=== PATIENT | female | born 1990 | race Caucasian/White ===

== ENCOUNTER 2019-09-08 09:18 | Emergency (ER) | payer OTHER, SELFPAY ==
[2019-09-08 09:47] VITALS: BP 145/88; PULSE 77; RESP 20; TEMP 36.3; O2SAT 98
--- NOTE | 2019-09-08 09:57 | ED.ABDPAIN ---
HPI - Abdominal Pain General Chief Complaint: Abdominal Pain Stated Complaint: bleeding after procedure History of Present Illness HPI narrative: A 29-year-old 2 para is 0 had a LEEP procedure 2 days ago. Since then she has had progressively worsening lower abdominal pain associated with chills, hot flashes, lightheadedness and nausea. The pain radiates into her lower back. It's made worse with the sneezing, coughing and walking and decreases with laying supine and applying a heating pad on her abdomen. This AM she passed 2 small clots. No bleeding since then. She has been taking naproxen 440 mg every 8-12 hours last dose was approximately for her the 3 hours ago. This has not sustantially relieved her pain. She has a hx of irregular menses. LMP 08/19/19 In addition, the angles of both jaw started hurting yesterday. This morning she noticed bruising in this area. Related Data Home Medications Medication Instructions Recorded Confirmed venlafaxine 37.5 mg PO DAILY 09/08/19 09/08/19 Allergies Allergy/AdvReac Type Severity Reaction Status Date / Time No Known Allergies Allergy Verified 09/08/19 09:53 Review of Systems Gastrointestinal: Gastrointestinal: Denies diarrhea and Denies vomiting Genitourinary: Genitourinary: Denies dysuria Musculoskeletal: Musculoskeletal: Reports no additional musculoskeletal complaints [facility] Past Medical History Medical History (Updated 09/09/19 @ 06:47 by Michael Reyes MD) Ovarian cyst Family History Family History (Updated 09/09/19 @ 06:38 by Michael Reyes MD) Father Hypertension Hyperlipidemia Mother Hyperlipidemia Hypertension Exam Const: General: no acute distress Nutritional Appearance: obese HENMT: Head: normal to inspection Mouth: Yes Normal oral and palatal mucosa present and Yes moist mucous membranes Throat: posterior oropharynx normal Other: Fully opens and closes mouth without pain. Neck: Other: Faint bruising and tenderness over the anterior edge of both [id number] muscles, just below the angles of the mandible. No induration. No cervical nodes. Minor pain in these regions when the head is fully rotated. GI: GI Palp: Yes Soft to palpation and Yes Tenderness to palpation present (GI) (suprapubic area. ) : General: Yes no CVA tenderness Speculum Exam - Vagina: vaginal discharge abnormal (yellow/cole thick vaginal d.c. ) and No vaginal bleeding Speculum Exam - Cervix: normal appearance of the cervix and Cervical tenderness present Bimanual exam- vagina & uterus: other (unable to palpate the uterus or adnexae secondary to obesity. ) OB/external & speculum: no herpetic lesions Other: cervix has dark cole necrotic surface. Course Course Emergency Course: I spoke with Dr. Francine Larkin at [facility] who reports anesthesia had some difficulty paralyzing. LMA was then inserted. Does not have last GC/Chlamydia. Pt will be contacted by [facility] for appt. tomorrow for recheck. Vital Signs Vital signs: Vital Signs Temperature 36.3 C L 09/08/19 09:47 Pulse Rate 77 09/08/19 09:47 Respiratory Rate 20 09/08/19 09:47 Blood Pressure 145/88 H 09/08/19 09:47 Pulse Oximetry 98 09/08/19 09:47 Temperature 36.3 C L 09/08/19 09:47 Pulse Rate 89 09/08/19 13:33 Respiratory Rate 18 09/08/19 13:33 Blood Pressure 128/72 09/08/19 13:33 Pulse Oximetry 98 09/08/19 13:33 MDM - Abdominal Pain MDM Narrative Medical decision making narrative: Lower abd. pain - complication of LEEP procedure, PID, cystitis, ectopic, UTI, appendicitis, abscess. Will tx for PID covering for anaerobes because of instrumentation. Neck pain and bruising: In view of reported difficulty with RSI the most likely explanation is an injury sustained in the process of intubation. Other possibilities include lymphangitis which doesn't explain the bruising. Lab Data Result diagrams: 09/08/19 10:16 09/08/19 10:16
[2019-09-08] MEDS: MORPHINE SULFATE 4 MG/ML INJ IV PUSH (10:07)
[2019-09-08 10:21] LABS: Basophils Absolute Auto 0.05 K/mm3 (0.00-0.10); Basophils Percent Auto 0.4 % (0.0-1.0); Eosinophils Absolute Auto 0.09 K/mm3 (0.02-0.50); Eosinophils Percent Auto 0.7 % (1.0-6.0); Hematocrit 37.3 % (35.0-49.0); Hemoglobin 12.6 g/dL (12.0-15.0); Immature Granulocyte Absolute 0.06 K/mm3 (0.00-0.00); Immature Granulocyte Percent A 0.5 % (0.0-0.0); Lymphocytes Absolute Auto 3.47 K/mm3 (1.10-4.50); Mean Corpuscular HGB Conc 33.8 g/dL (32.0-36.0); Mean Corpuscular Hemoglobin 29.2 pg (27.0-31.0); Mean Corpuscular Volume 86.3 fL (78.0-102.0); Mean Platelet Volume 10.3 fl (9.2-11.8); Monocytes Absolute Auto 1.18 K/mm3 (0.10-0.90); Monocytes Percent Auto 9.5 % (2.0-11.0); Neutrophils Absolute Auto 7.5 K/mm3 (1.7-7.2); Neutrophils Percent Auto 60.9 % (50.0-70.0); Platelet Count Result 236 K/mm3 (150-420); Red Blood Count 4.32 M/mm3 (4.20-5.40); Red Cell Distribution Width 12.9 % (11.6-14.4); White Blood Count 12.4 K/mm3 (4.8-10.8)
[2019-09-08 10:38] LABS: Alanine Aminotransferase 27 U/L (14-59); Albumin Level 3.6 g/dL (3.4-5.0); Alkaline Phosphatase 128 U/L (46-116); Aspartate Amino Transferase 17 U/L (15-37); Bilirubin,Total 0.3 mg/dL (0.00-1.00); Blood Urea Nitrogen 16 mg/dL (7-18); Calcium 8.4 mg/dL (8.5-10.1); Carbon Dioxide 27 mmol/L (21-32); Chloride 107 mmol/L (98-108); Estimated CRCL calculation 128 ml/min; Estimated Glomerular Filt Rate > 60; Glucose 75 mg/dL (70-99); Osmolality Calculated 290 mOsm/kg (285-295); Sodium 140 mmol/L (136-145); Total Protein 6.6 g/dL (6.4-8.2)
--- NOTE | 2019-09-08 10:51 | PC.NURSE ---
Report to Vince Rendon
[2019-09-08 11:04] LABS: Add Urine Microscopic? YES; Appearance Urine Clear (Clear); Bilirubin Urine Negative (Negative); Blood Urine 1+ (Negative); Color Urine Yellow (Yellow); Glucose Urine UA Negative (Negative); Ketones Urine Negative (Negative); Leukocyte Esterase Ur Negative (Negative); Nitrate Urine Negative (Negative); Protein Urine Negative (Negative); Specific Grav Ur 1.025 (1.010-1.020); Urobilinogen Urine 0.2 mg/dL (0.2-1.0)
[2019-09-08 11:07] LABS: Urine Pregnancy Test Negative
[2019-09-08 11:08] LABS: Pregnancy On Board Control Positive; RBC Urine 0-2 /hpf (0-2); Specific Gravity Ur 1.025 (1.010-1.035); Squamous Epithelial Cell Urine Few /hpf (Few); WBC Urine 0-3 /hpf (0-3)
[2019-09-08 11:09] LABS: Bacteria Urine 1+ /hpf; Mucus Urine Few /lpf
[2019-09-08 11:21] LABS: Erythrocyte Sedimentation Rate 5 mm/hr (0-15)
[2019-09-08 11:44] LABS: Monoscreen Negative (Negative); Negative Monotest Control Negative (Negative); Positive Monotest Control Positive (Positive)
[2019-09-08] MEDS: HYDROMORPHONE HCL 2 MG/ML VIAL 1 MG IV PUSH (11:49)
[2019-09-08] MEDS: metroNIDAZOLE 250 MG TABLET 500 MG PO (13:09)
[2019-09-08] MEDS: cefTRIAXone 250 MG VIAL IM (13:10)
[2019-09-08] MEDS: DOXYCYCLINE HYCLATE 100 MG TABLET PO (13:10)
[2019-09-08 13:33] VITALS: BP 128/72; PULSE 89; RESP 18; O2SAT 98
== END 2019-09-08 13:37 | disposition home or self-care (01) ==
PROVIDERS: Emergency Provider Family Medicine; PCP Family Medicine
DX: N73.9 Female pelvic inflammatory disease, unspecified (principal); S19.9XXA Unspecified injury of neck, initial encounter
CPT/HCPCS: 36415; 80053; 81001; 81025; 85025; 85652; 86308; 87210; 87491; 87591; 87880; 96372; 96374; 96375; 99283; 99284; A9270; J0696; J1170; J2270

== ENCOUNTER 2022-02-14 15:16 | Emergency (ER) | payer OTHER, MEDICAID, SELFPAY ==
--- NOTE | ~2022-02-14 | CT_ITS ---
EXAMINATION: CT abdomen pelvis wo con DATE: 02/14/2022 16:29 INDICATION: Right lower quadrant abdominal pain. TECHNIQUE: Computed tomography (CT) of the abdomen and pelvis was performed without intravenous contr ast. Automated exposure control and iterative reconstruction technique were employed. The dose-length product was 1516.92 mGy-cm. COMPARISON: None. FINDINGS: The visualized portions of the lung bases are clear without pneumonia or pleural effusion. The heart size is normal. No pericardial effusion. There is diffuse hepatic steatosis. The gallbladde r, spleen, pancreas, adrenal glands, and kidneys are normal. There is no urolithiasis. There are no d ilated loops of bowel. The appendix is normal. There are no pathologically enlarged lymph nodes. Ther e is no free intraperitoneal fluid. There is mild thoracic spondylosis. IMPRESSION: 1. Diffuse hepatic steatosis. Reviewed, dictated and finalized at location A.
[2022-02-14 15:35] VITALS: BP 144/89; PULSE 83; RESP 20; TEMP 36.1; O2SAT 96
[2022-02-14 16:09] LABS: Basophils Absolute Auto 0.04 K/mm3 (0.00-0.10); Basophils Percent Auto 0.4 % (0.0-1.0); Eosinophils Absolute Auto 0.12 K/mm3 (0.02-0.50); Eosinophils Percent Auto 1.1 % (1.0-6.0); Hematocrit 42.2 % (35.0-49.0); Hemoglobin 14.6 g/dL (12.0-15.0); Immature Granulocyte Absolute 0.03 K/mm3 (0.00-0.00); Immature Granulocyte Percent A 0.3 % (0.0-0.0); Lymphocytes Absolute Auto 2.27 K/mm3 (1.10-4.50); Lymphocytes Percent Auto 21.4 % (18.0-42.0); Mean Corpuscular HGB Conc 34.6 g/dL (32.0-36.0); Mean Corpuscular Hemoglobin 29.5 pg (27.0-31.0); Mean Corpuscular Volume 85.3 fL (78.0-102.0); Mean Platelet Volume 10.2 fl (9.2-11.8); Monocytes Absolute Auto 0.69 K/mm3 (0.10-0.90); Monocytes Percent Auto 6.5 % (2.0-11.0); Neutrophils Absolute Auto 7.5 K/mm3 (1.7-7.2); Neutrophils Percent Auto 70.3 % (50.0-70.0); Platelet Count Result 295 K/mm3 (150-420); Red Blood Count 4.95 M/mm3 (4.20-5.40); Red Cell Distribution Width 11.8 % (11.6-14.4); White Blood Count 10.6 K/mm3 (4.8-10.8)
[2022-02-14 16:11] LABS: Add Urine Microscopic? YES; Appearance Urine Clear (Clear); Bilirubin Urine Negative (Negative); Blood Urine Negative (Negative); Color Urine Yellow (Yellow); Glucose Urine UA Negative (Negative); Ketones Urine Trace (Negative); Leukocyte Esterase Ur Negative (Negative); Nitrate Urine Negative (Negative); Protein Urine Negative (Negative); Specific Grav Ur >= 1.030 (1.010-1.020); Urobilinogen Urine 0.2 mg/dL (0.2-1.0)
[2022-02-14 16:15] LABS: Bacteria Urine Trace /hpf; Mucus Urine Few /lpf; Pregnancy On Board Control Positive; RBC Urine None seen /hpf (0-2); Squamous Epithelial Cell Urine Few /hpf (Few); Urine Pregnancy Test Negative; WBC Urine None seen /hpf (0-3)
[2022-02-14 16:25] LABS: Alanine Aminotransferase 42 U/L (14-59); Albumin Level 4.2 g/dL (3.4-5.0); Alkaline Phosphatase 145 U/L (46-116); Anion Gap 10 mmol/L (8-16); Aspartate Amino Transferase 29 U/L (15-37); Bilirubin,Total 0.8 mg/dL (0.00-1.00); Blood Urea Nitrogen 15 mg/dL (7-18); Calcium 9.3 mg/dL (8.5-10.1); Carbon Dioxide 24 mmol/L (21-32); Chloride 103 mmol/L (98-108); Estimated CRCL calculation 132 ml/min; Estimated Glomerular Filt Rate > 60; Glucose 83 mg/dL (70-99); Osmolality Calculated 283 mOsm/kg (285-295); Sodium 137 mmol/L (136-145); Total Protein 7.7 g/dL (6.4-8.2)
--- NOTE | 2022-02-14 16:38 | ED.ABDPAIN ---
HPI - Abdominal Pain General Chief Complaint: Abdominal Pain Stated Complaint: lower r pelvic pain Time Seen by Provider: 02/14/22 15:18 Source: patient Mode of arrival: ambulatory Limitations: no limitations History of Present Illness HPI narrative: this is a 31-year-old female who presents with some right lower quadrant abdominal pain, the patient did see her seam taper machine yesterday and had transvaginal ultrasound performed as well as pelvic exam. The patient subsequent to that has been having right lower quadrant abdominal pain over the last 24hours called her seam taper machine which told her to present to the ER for further evaluation. There is some tenderness she rates her pain about a 6/10 with no fever chills no diarrhea constipation no nausea vomiting. MD elicited complaint: abdominal pain Onset (ago): day(s) Location: RLQ Severity: moderate Quality: aching Radiation: R flank Related Data Home Medications Medication Instructions Recorded Confirmed bupropion HCl 150 mg 24 hr tablet, 150 mg PO BID 02/14/22 02/14/22 extended release Allergies Allergy/AdvReac Type Severity Reaction Status Date / Time No Known Allergies Allergy Verified 02/14/22 15:52 Review of Systems Review of Systems: All systems reviewed & are unremarkable except as noted in HPI and below PMFSH Past Medical History Medical History Ovarian cyst Family History Family History Father Hypertension Hyperlipidemia Mother Hyperlipidemia Hypertension Exam Const: General: healthy appearing, no acute distress and alert Nutritional Appearance: well nourished Limitations: no limitations HENMT: Head: normal to inspection Eyes: Conjunctivae: conjunctivae normal Pupils: Equal, round and reactive pupils present EOM: EOMs intact bilaterally Direct Ophthalmoscopy: no photophobia Neck: Neck: normal visual inspection Resp: Effort & Inspection: normal respiratory effort Cardio: Rate: regular rate GI: GI Palp: Yes Soft to palpation Auscultation: normal bowel sounds : General: Yes bladder normal to palpation Back/Spine/Pelvis: Back: no CVA tenderness Skin: General skin exam: normal color Wounds: no wounds Neuro: General: patient oriented x3, moves all extremities, no meningeal signs and no focal motor deficits Extrem: General: normal to inspection Psych: Mental Status: mental status grossly normal Affect: normal affect Course Course Emergency Course: Patient received IM Toradol, labs and CT scan reviewed with patient. Vital Signs Vital signs: Vital Signs Temperature 36.1 C L 02/14/22 15:35 Pulse Rate 83 02/14/22 15:35 Respiratory Rate 20 02/14/22 15:35 Blood Pressure 144/89 H 02/14/22 15:35 Pulse Oximetry 96 02/14/22 15:35 Oxygen Delivery Room Air 02/14/22 15:35 Temperature 36.1 C L 02/14/22 15:35 Pulse Rate 83 02/14/22 15:35 Respiratory Rate 20 02/14/22 15:35 Blood Pressure 144/89 H 02/14/22 15:35 Pulse Oximetry 96 02/14/22 15:35 Oxygen Delivery Room Air 02/14/22 15:35 MDM - Abdominal Pain Lab Data Result diagrams: 02/14/22 16:03 02/14/22 16:03 Labs: Lab Results 02/14/22 02/14/22 02/14/22 Range/Units 16:03 16:03 16:03 WBC 10.6 (4.8-10.8) K/mm3 RBC 4.95 (4.20-5.40) M/mm3 Hgb 14.6 (12.0-15.0) g/dL Hct 42.2 (35.0-49.0) % MCV 85.3 (78.0-102.0) fL MCH 29.5 (27.0-31.0) pg MCHC 34.6 (32.0-36.0) g/dL RDW 11.8 (11.6-14.4) % Plt Count 295 (150-420) K/mm3 MPV 10.2 (9.2-11.8) fl Immature Gran % (Auto) 0.3 H (0.0-0.0) % Neut % (Auto) 70.3 H (50.0-70.0) % Lymph % (Auto) 21.4 (18.0-42.0) % [place] % (Auto) 6.5 (2.0-11.0) % Eos % (Auto) 1.1 (1.0-6.0) % Baso % (Auto) 0.4 (0.0-1.0) % Lymph # (Auto) 2.27 (1.10-4.50) K/mm3 [place] # (Auto) 0.69 (0.10-0.90) K/mm3 E
[2022-02-14] MEDS: KETOROLAC (*BKC) 60 MG/2 ML VIAL IM (16:52)
[2022-02-14 16:56] VITALS: BP 140/69; PULSE 88; RESP 18; TEMP 36.7; O2SAT 99
== END 2022-02-14 16:58 | disposition home or self-care (01) ==
PROVIDERS: Emergency Provider Emergency Medicine
DX: R10.31 Right lower quadrant pain (principal)
CPT/HCPCS: 36415; 74176; 80053; 81001; 81025; 85025; 96372; 99284; J1885